=== PATIENT | female | born 1990 | race Caucasian/White ===

== ENCOUNTER 2019-01-13 15:41 | Emergency (ER) | payer MEDICAID ==
[~2019-01-13] VITALS: Ht 160 cm; Wt 76.3 kg
[2019-01-13 16:29] VITALS: BP 120/72
--- NOTE | 2019-01-13 18:34 | NUR ---
Patient given discharge instructions and they have confirmed that they understand the instructions. Patient ambulatory with steady gait.
== END 2019-01-13 18:39 | disposition home or self-care (01) ==
LOC: ED 18:33
DX: R05 Cough (principal); R09.81 Nasal congestion; M79.10 Myalgia, unspecified site; J34.89 Other specified disorders of nose and nasal sinuses; F17.200 Nicotine dependence, unspecified, uncomplicated
CPT/HCPCS: 71046; 99283